=== PATIENT | female | born 1945 | race Caucasian/White ===

== ENCOUNTER 2019-03-22 09:15 | Outpatient (RCR) | payer OTHER ==
--- NOTE | 2019-03-03 16:35 | RS.OPPTDN ---
Subjective Date of Note: 03/03/19 Visit #: 9 Number of visits approved by Insurance: Reassess next session Date of Evaluation: 02/09/19 Payer Source: MEDICARE Treatment Diagnosis: low back pain with radiculopathy into BLE Current Subjective/complaints:: Patient says she is hurting higher on the R side of her back today. STates she is unable to see a reason for change in location of pain. Reports she followed up with Dr. Rosa Thursday and was given a script for a mm relaxer, in which she began and stopped due to the side effects. Reports she felt nauseated and "not herself." *Precautions: n/a - Treatment Modality: Ultrasound Parameters/Method Applied: continuous 1.6 w/cm2 x 12 mins to the lower thoracic and lumbar paraspinals Patient Position: Prone - Heat/Cryotherapy Treatment: Hot Pack (over the mid to low back x 20 mins prone) Interventions - Exercise/Activities/Manual Therapy Exercises/Activities: Patient performs prone therex related to area of pain today. Prone lying during modalities. CELESTINE 2x3 mins. Alternate LE lift 2x5. ALternate UE/LE lift with consistent cueing (tactilly)to maintain coordination 2x5. Patient reviewed HeP. Total minutes of Exercise: 10 Manual Therapy: n/a - Charges Timed Code Treatment Minutes: 22 Total Treatment Time: 42 Procedures billed for this date of service:: hp, u/s, ex Assessment: Patient's LBP has improved and now is mostly at the R lower thoracic and upper lumbar paraspinals. No radicular symptoms. No increased mm guarding to this area. No tenderness to moderate palpation. She is able to perform prone therex painfree only cueing due to coordination of alternating therex. Patient Education: Education of diagnosis, Home Exercise Program, Education of Plan of Care Patient demonstrates compliance with HEP?: Yes Short Term Goals Goal #1: pt independent with initial HEP Goal to be met by: 03/02/19 Progress towards Goal:: Progressing Goal #2: Improve flexibility in BLE hamstrings/piriformis Goal to be met by: 03/02/19 Progress towards Goal:: Met Goal #3: Decrease pain in lumbar/sacral area < 5/10 with activity Goal to be met by: 03/02/19 Progress towards Goal:: Met Care Home Goals Goal #1: Improve lumbar ROM WFL's with less pain Goal to be met by: 03/23/19 Progress towards goal: Progressing Goal #2: pt with no reports of radicular pain in LE's Goal to be met by: 03/23/19 Goal #3: pt report able to stand to cook meal or do dishes without pain Goal to be met by: 03/23/19 Plan Dates of Charge Histotechnologist Goals: 03/23/19 Expiration date of current Insurance Approval:: 03/23/19 PLAN: REassess next session
--- NOTE | 2019-03-10 10:42 | RS.OPPTDN ---
Subjective Date of Note: 03/07/19 Visit #: 10 Number of visits approved by Insurance: 12 Date of Evaluation: 02/09/19 Payer Source: MEDICARE Treatment Diagnosis: low back pain with radiculopathy into BLE Current Subjective/complaints:: Patient says her R knee is hurting more than her back right now. States she had no increase in pain to her back or LEs following addition of prone therex last session. She is working on HEP mainly stretches and feels she is able to see more flexibility. *Precautions: n/a - Treatment Modality: Ultrasound Parameters/Method Applied: continuous @ 1.5 w/cm2 x 12 mins to the L mid lumbar paraspinals Patient Position: Prone - Heat/Cryotherapy Treatment: Hot Pack (across the low back and R SI joint in prone x 15 mins) Interventions - Exercise/Activities/Manual Therapy Exercises/Activities: Patient receives assisted stretching in supine of SKTC, HS , Piriformis, Figure 4, and lower trunk rotation bilaterally x 3 ea. Patient performs hooklying: ball squeezes, isometric hip abd/flexion 2x5, SLR (R 2x5), QS(R), bridging all 2x10 reps. Ongoing education of exercises performed today and benefits. Total minutes of Exercise: 22 Manual Therapy: n/a - Objective Findings Observations,measurements,etc.: Oswestry: score 16 or 32% impairment. Eval measured 29 or 58% impairment - Charges Timed Code Treatment Minutes: 34 Total Treatment Time: 49 Procedures billed for this date of service:: hp, u/s, ex Assessment: Patient experiencing decreased back pain and elevated R knee pain. She demo good flexibility of R LE showing normal range and progressing with strengthening to trunk mm's and R LE. is building ramp from garage to home due to steep steps to/from this location to improve difficulty regarding the R LE of herself, her , and sister who will be coming to stay with them soon. She remains with fear of falling due to the R knee popping and "buckling" when walking or ascending a step. Improvements specifically shown in ability to sit and stand longer and overall pain improvement also allowing for better sleep. Limitations are travelling and social life due to above fears and prolonged sitting/standing for travel. Patient Education: Education of diagnosis, Body/Joint mechanics, Home Exercise Program, Home Safety, Education of Plan of Care Patient demonstrates compliance with HEP?: Yes Short Term Goals Goal #1: pt independent with initial HEP Goal to be met by: 03/02/19 Progress towards Goal:: Progressing Goal #2: Improve flexibility in BLE hamstrings/piriformis Goal to be met by: 03/02/19 Progress towards Goal:: Met Goal #3: Decrease pain in lumbar/sacral area < 5/10 with activity Goal to be met by: 03/02/19 Progress towards Goal:: Met Fpc Goals Goal #1: Improve lumbar ROM WFL's with less pain Goal to be met by: 03/23/19 Progress towards goal: Progressing Goal #2: pt with no reports of radicular pain in LE's Goal to be met by: 03/23/19 Progress towards goal: Progressing Comments: R knee pain admitted chronic hx of arthritis intermittently Goal #3: pt report able to stand to cook meal or do dishes without pain Goal to be met by: 03/23/19 Progress towards goal: Progressing Comments: admits some improvement with this task Plan Dates of Dry Man Goals: 03/23/19 Expiration date of current Insurance Approval:: 03/23/19 PLAN: Patient to continue x 2 more sessions. She has been referred to see Dr. Layton Bynum on 03/23/19. She may benefit from focusing PT treatment on strengthening the R LE further and perform dynamic exercises to improve fear of falling and stability to the R knee.
--- NOTE | 2019-03-10 16:03 | RS.OPPTDN ---
Subjective Date of Note: 03/10/19 Visit #: 11 Number of visits approved by Insurance: 12 Date of Evaluation: 02/09/19 Payer Source: MEDICARE Treatment Diagnosis: low back pain with radiculopathy into BLE Current Subjective/complaints:: Patient says her pain is much better and has times where she has no pain. STates mornings are always better. Reports standing for prolonged period on concrete. Sitting is getting a little easier. She says she is still scared that her knee will buckle when walking too far or ascending steps. *Precautions: n/a - Treatment Modality: Ultrasound Parameters/Method Applied: continuous @ 1.5 w/cm2 x 10 mins to the R lumbar parapinals Patient Position: Prone - Heat/Cryotherapy Treatment: Hot Pack (15 mins to the low back in prone) Interventions - Exercise/Activities/Manual Therapy Exercises/Activities: Patient receives assisted stretching in supine of SKTC, HS , Piriformis, Figure 4, and lower trunk rotation bilaterally x 3 ea. Patient performs hooklying: ball squeezes, isometric hip abd/flexion 2x5, SLR (R 2x5), QS(R), bridging all 2x10 reps. SAQ 2# each LE, DF with green tband, hip abd in hooklyig with green tband 2x10. Standing: forward and lateral step up board x 10 with cues on proper sequencing. Total minutes of Exercise: 26 Manual Therapy: n/a - Charges Timed Code Treatment Minutes: 36 Total Treatment Time: 51 Procedures billed for this date of service:: hp, u/s, ex2 Assessment: Patient able to maxime additon of R LE strengthening and steps well today. No popping or feeling of instability by pt. She has been experiencing low pain level and at times no pain to the R LB. She maintains intermittent R knee pain assoc with arthritis (per pt). She demo HS and piriformis length WNL now and also demo increased R hip strength. Patient Education: Home Exercise Program, Education of Plan of Care Patient demonstrates compliance with HEP?: Yes Short Term Goals Goal #1: pt independent with initial HEP Goal to be met by: 03/02/19 Progress towards Goal:: Met Goal #2: Improve flexibility in BLE hamstrings/piriformis Goal to be met by: 03/02/19 Progress towards Goal:: Met Goal #3: Decrease pain in lumbar/sacral area < 5/10 with activity Goal to be met by: 03/02/19 Progress towards Goal:: Met Designer And Patternmaker Goals Goal #1: Improve lumbar ROM WFL's with less pain Goal to be met by: 03/23/19 Progress towards goal: Progressing Goal #2: pt with no reports of radicular pain in LE's Goal to be met by: 03/23/19 Progress towards goal: Partially Met Comments: at this point she does not have any LEs radiating pain Goal #3: pt report able to stand to cook meal or do dishes without pain Goal to be met by: 03/23/19 Progress towards goal: Progressing Plan Dates of Snf Goals: 03/23/19 Expiration date of current Insurance Approval:: 03/23/19 PLAN: Continue 1 more session per order.
--- NOTE | 2019-03-11 16:22 | RS.PTSUM ---
Progress Note/Summary Date of Note: 03/07/19 Date of Evaluation: 02/09/19 Number of Visits: 10 Number of visits approved by Insurance: n/a Reporting Period for this Progress Note: 02/09/19-03/07/19 Current Complaints/Gains: pt states her back pain is no longer constant. Reports that mornings are best for her and rates pain 2/10 and at end of day 5/ 10. States she no longer has radiating pain into LE's. Does report some intermittent R knee pain associated with OA and has a fear of R knee buckling and causing a fall. Objective Measurements/Presentation: pt sees DR. Bynum on 03/23/19. pt was referred to PT per Dr. Cortez. pt has normalized R hamstring and piriformis length compared also to LLE. pt is advancing with prone extension and trunk/RLE strength without difficulty. Improved oswestry with overall general reduction of pain, increased tolerance to sitting and standing and supine. Limitations remain with travel and social life for fear of falling. G Codes: n/a Source of G Code Score: n/a - Short Term Goals Goal #1: pt independent with initial HEP Goal to be met by: 03/02/19 Progress towards Goal:: Met Goal #2: Improve flexibility in BLE hamstrings/piriformis Goal to be met by: 03/02/19 Progress towards Goal:: Met Goal #3: Decrease pain in lumbar/sacral area < 5/10 with activity Goal to be met by: 03/02/19 Progress towards Goal:: Met - Delivery Associate Goals Goal #1: Improve lumbar ROM WFL's with less pain Goal to be met by: 03/23/19 Progress towards goal: Progressing Goal #2: pt with no reports of radicular pain in LE's Goal to be met by: 03/23/19 Progress towards goal: Met Goal #3: pt report able to stand to cook meal or do dishes without pain Goal to be met by: 03/23/19 Progress towards goal: Progressing - Assessment Assessment of Improvement/Progress: pt has met all STG'a and LTG 2. pt is progressing toward remaining goals. pt has made significant progress with decrease in pain and improvement in flexibility. pt continues with feeling as though R knee will buckle and continues with LBP. Summary: Patient has made progress towards goals., Patient demonstrates potential to gain increased function with therapy - Plan Plan: Complete remaining visits on current order. Frequency: 2 X week Duration: 2 weeks Dates of Delivery Associate Goals: 03/23/19 Expiration date of current Insurance Approval:: n/a
--- NOTE | 2019-03-16 15:14 | RS.OPPTDN ---
Subjective Date of Note: 03/16/19 Visit #: 13 Number of visits approved by Insurance: continue until 03/23/19 per updated progress report Date of Evaluation: 02/09/19 Payer Source: MEDICARE Treatment Diagnosis: low back pain with radiculopathy into BLE Current Subjective/complaints:: Patient c/o pain to the L low back and SI joint. Rates 4/10. *Precautions: n/a - Treatment Modality: Electrical Stim Unattended Parameters/Method Applied: IFC @ 22-25 ma 4 large pads at the L lumbar paraspinals and SI joint x 20 mins Patient Position: Prone - Heat/Cryotherapy Treatment: Hot Pack Comments:: with estim to the low back and over the L buttock Interventions - Exercise/Activities/Manual Therapy Exercises/Activities: Patient receives assisted stretching in supine of SKTC, HS , Piriformis, Figure 4, and lower trunk rotation bilaterally x 3 ea. Patient performs hooklying: ball squeezes, isometric hip abd/flexion 2x5, SLR (R 2x5), QS(R), bridging all 2x10 reps. SAQ 2# each LE, DF with green tband, hip abd in hooklyig with green tband 2x10. Provided blue tband for home use to advance to. Standing: forward and lateral step up board x 12 with cues on proper sequencing. Minisquats and hip abd x 10. Total minutes of Exercise: 22 Manual Therapy: n/a - Charges Timed Code Treatment Minutes: 22 Total Treatment Time: 45 Procedures billed for this date of service:: hp, estim (un), ex Assessment: Patient presents with pain only at the L lower lumbar paraspinals and SI rating 4/10 prior to treatment and 1/10 afterwards. She is able to demo full piriformis and HS length and step ups without LOB or increased pain. No popping noted or unsteadiness. She should continue to benefit from strengthening therex to bilateral LEs. Patient Education: Home Exercise Program, Education of Plan of Care Patient demonstrates compliance with HEP?: Yes Short Term Goals Goal #1: pt independent with initial HEP Goal to be met by: 03/02/19 Progress towards Goal:: Met Goal #2: Improve flexibility in BLE hamstrings/piriformis Goal to be met by: 03/02/19 Progress towards Goal:: Met Goal #3: Decrease pain in lumbar/sacral area < 5/10 with activity Goal to be met by: 03/02/19 Progress towards Goal:: Met Professor Of Economics Goals Goal #1: Improve lumbar ROM WFL's with less pain Goal to be met by: 03/23/19 Progress towards goal: Progressing Goal #2: pt with no reports of radicular pain in LE's Goal to be met by: 03/23/19 Progress towards goal: Met Goal #3: pt report able to stand to cook meal or do dishes without pain Goal to be met by: 03/23/19 Progress towards goal: Progressing Plan Dates of Professor Of Economics Goals: 03/23/19 Expiration date of current Insurance Approval:: 03/23/19 PLAN: Continue one more session this week and then x 1 more next week.
--- NOTE | 2019-03-18 15:07 | RS.OPPTDN ---
Subjective Date of Note: 03/18/19 Visit #: 13 Number of visits approved by Insurance: 15 Date of Evaluation: 02/09/19 Payer Source: MEDICARE Treatment Diagnosis: low back pain with radiculopathy into BLE Current Subjective/complaints:: Patient continues to say she has pain to the L glut region. She admits no longer having pain to the R and denies R knee pain today. She asks for estim to help relieve this pain as it is affecting her while ambulating. *Precautions: n/a - Treatment Modality: Electrical Stim Unattended Parameters/Method Applied: 2 electrodes hivolt over the L SI/superior glut @ 155 pk volts x 20 mins Patient Position: Prone - Heat/Cryotherapy Treatment: Hot Pack Comments:: over the low back and L SI/superior glut Interventions - Exercise/Activities/Manual Therapy Exercises/Activities: Patient receives assisted stretching in supine of SKTC, HS , Piriformis, Figure 4, and lower trunk rotation bilaterally x 3 ea. Patient performs hooklying: ball squeezes, isometric hip abd/flexion 2x5, SLR (R 2x5), QS(R), bridging all 2x10 reps. SAQ 2# each LE, DF with green tband, hip abd in hooklyig with green tband 2x10. Omitted step ups as this may be the reason for L hip pain. Total minutes of Exercise: 18 Manual Therapy: n/a - Charges Timed Code Treatment Minutes: 18 Total Treatment Time: 38 Procedures billed for this date of service:: hp, estim (un), ex Assessment: Patient with moderate pain to the L superior glut. Through estim, pain lessed mildly. Omitted standing therex as it may be the contributer to this recent pain and to this location. R LB and knee has not been an issue for several days. Patient Education: Education of diagnosis, Home Exercise Program, Education of Plan of Care Patient demonstrates compliance with HEP?: Yes Short Term Goals Goal #1: pt independent with initial HEP Goal to be met by: 03/02/19 Progress towards Goal:: Met Goal #2: Improve flexibility in BLE hamstrings/piriformis Goal to be met by: 03/02/19 Progress towards Goal:: Met Goal #3: Decrease pain in lumbar/sacral area < 5/10 with activity Goal to be met by: 03/02/19 Progress towards Goal:: Met Detention Goals Goal #1: Improve lumbar ROM WFL's with less pain Goal to be met by: 03/23/19 Progress towards goal: Progressing Goal #2: pt with no reports of radicular pain in LE's Goal to be met by: 03/23/19 Progress towards goal: Met Goal #3: pt report able to stand to cook meal or do dishes without pain Goal to be met by: 03/23/19 Progress towards goal: Progressing Plan Dates of Detention Goals: 03/23/19 Expiration date of current Insurance Approval:: 03/23/19 PLAN: Patien to continue 1-2 more sessions next week then attend appt with Dr. Bynum on 03/23/19
--- NOTE | 2019-03-22 11:00 | RS.OPPTDN ---
Subjective Date of Note: 03/22/19 Visit #: 14 Number of visits approved by Insurance: 14 Date of Evaluation: 02/09/19 Payer Source: MEDICARE Treatment Diagnosis: low back pain with radiculopathy into BLE Current Subjective/complaints:: Patient states she fell Thursday night tripping over her coffee table. She says she had her arms out front of her and landed on her hands, face, and knees. She c/o increased pain to the R knee however since the fall and says she will tell MD tomorrow at her appt. She says she has used heat to her back following the fall to assist with pain. *Precautions: n/a - Treatment Modality: Electrical Stim Unattended Parameters/Method Applied: IFC @ 15 ma x 20 mins to the L LB and glut per pt request of pain site Patient Position: Prone - Heat/Cryotherapy Treatment: Cryotherapy Comments:: over the LLB and glut with estim Interventions - Exercise/Activities/Manual Therapy Exercises/Activities: Patient receives more conservative treatment based on reports of recent increase in pain related to fall. Treatment included passive SKTC, HS, Piriformis, Figure 4, and lower trunk rotation. Heel cord stretching all bilaterally x 4 ea. Isometric hip abd x 10. Reviewed HEP and safety with transfers with her and spouse. Total minutes of Exercise: 14 Manual Therapy: n/a - Objective Findings Observations,measurements,etc.: NO observable bruising or scrapes to face or back due to fall. Pt points to areas of pain, but no obvious wounds seen. - Charges Timed Code Treatment Minutes: 14 Total Treatment Time: 40 Procedures billed for this date of service:: cp, estim (un), ex Assessment: Patient recently experienced fall landing forward onto hands, knees , and face while getting up from seated postion and tripping over coffee table. She has increased back and R knee pain. Back pain primarily is indicated at the L and L glut. Treatment today did relieve mildly, but continues to have fear with ambulating. She will attend referral appt to Dr. Bynum by her PCP tomorrow for further assessment. Patient Education: Education of diagnosis, Body/Joint mechanics, Home Exercise Program, Home Safety Patient demonstrates compliance with HEP?: Yes Short Term Goals Goal #1: pt independent with initial HEP Goal to be met by: 03/02/19 Progress towards Goal:: Met Goal #2: Improve flexibility in BLE hamstrings/piriformis Goal to be met by: 03/02/19 Progress towards Goal:: Met Goal #3: Decrease pain in lumbar/sacral area < 5/10 with activity Goal to be met by: 03/02/19 Progress towards Goal:: Met Wet Cleaner Machine Goals Goal #1: Improve lumbar ROM WFL's with less pain Goal to be met by: 03/23/19 Progress towards goal: Regressing Comments: due to fall on 03/20/19 Goal #2: pt with no reports of radicular pain in LE's Goal to be met by: 03/23/19 Progress towards goal: Regressing Comments: see above comment for pain involving the R knee Goal #3: pt report able to stand to cook meal or do dishes without pain Goal to be met by: 03/23/19 Progress towards goal: Progressing Plan Dates of Wet Cleaner Machine Goals: 03/23/19 Expiration date of current Insurance Approval:: 03/23/19 PLAN: Discontinue, work on HEP, and see referral MD tomorrow.
--- NOTE | 2019-03-25 09:58 | RS.OPPTDC ---
Date of Discharge: 03/22/19 Date of Evaluation: 02/09/19 Number of Visits: 14 Treatment Diagnosis: low back pain with radiculopathy into BLE Current Level of Function: pt with improved functional score to 16, on eval was 29. pt advanced with strengthening to trunk and LE as well as standing, dynamic steps training. pt not willing to use AD of any kind to prevent fall in future. pt does have MD appt 03/23/19. Current Complaints/Gains: pt c/o fall on 03/20/19. States since fall she has had increased L side back pain and increased R knee pain. States she still feels unsteady regarding her knee. Prior to the fall pt had reported no longer having constant back pain and was performing HEP at home. Functional Outcome Measure Oswestry LBP: 16 - G Codes & Severity Modifier G Codes & Modifier: n/a Source of G Code score: na Interventions - Exercise/Activities/Manual Therapy Exercises/Activities: n/a Manual Therapy: n/a - Charges Timed Code Treatment Minutes: n/a Total Treatment Time: n/a Procedures billed for this date of service:: n/a Assessment Assessment: pt has met all STG progressing toward remaining goals. pt has demontrated a regression due to fall on 03/20/19. pt had previously demonstrated improvement with pain and flexibility. Feel pt would benefit from AD however is not receptive when SAWMILL MOULDER OPERATOR discussed with her. Patient Education: Home Exercise Program, Education of Plan of Care Rehab Potential: Good Short Term Goals Goal #1: pt independent with initial HEP Goal to be met by: 03/02/19 Progress towards Goal:: Met Goal #2: Improve flexibility in BLE hamstrings/piriformis Goal to be met by: 03/02/19 Progress towards Goal:: Met Goal #3: Decrease pain in lumbar/sacral area < 5/10 with activity Goal to be met by: 03/02/19 Progress towards Goal:: Met Penitentiary Goals Goal #1: Improve lumbar ROM WFL's with less pain Goal to be met by: 03/23/19 Progress towards goal: Regressing Goal #2: pt with no reports of radicular pain in LE's Goal to be met by: 03/23/19 Progress towards goal: Regressing Goal #3: pt report able to stand to cook meal or do dishes without pain Goal to be met by: 03/23/19 Progress towards goal: Progressing Plan Reason for Discharge:: Maximum Potential Met
== END 2019-04-02 23:59 ==
PROVIDERS: ATTEND Family Medicine
DX: M54.5 Low back pain (principal); M54.10 Radiculopathy, site unspecified; M62.89 Other specified disorders of muscle